=== PATIENT | female | born 1950 | race Caucasian/White ===

== ENCOUNTER 2018-03-26 09:01 | Outpatient (CLI) | payer MEDICARE ==
[2018-03-26] MEDS ORDERED: Iopamidol 370 76% 100 ML VIAL ONE (10:12)
--- NOTE | 2018-03-26 14:49 | CT ---
CT ANGIOGRAM OF NECK: Date: 03/26/18 HISTORY: Evaluate for carotid stenosis. Abnormal carotid ultrasound, performed at the physician's office. COMPARISON: None. TECHNIQUE: CT angiogram of the neck is performed in the axial plane. Three-dimensional reformatted images are khan bmitted for interpretation. FINDINGS: The visualized brain parenchyma and orbits are unremarkable. Adequate aeration of the visualized sinuses and mastoid air cells. No obvious masses in the oral cavity. Midline fatty raphe of the tongue is preserved. Epiglottis has a normal caliber. Preepiglottic fat is preserved. There is no prevertebral soft tissue swelling. Symmetric attenuation of the sternocleidomastoid muscles. Symmetric attenuation of the parotid and khan bmandibular glands. Mild heterogeneity of the thyroid gland. Nonemergent thyroid ultrasound recommended. No evidence of lymphadenopathy by size criteria. Cervical spine vertebral body height is maintained. There is no cervical spine fracture. Straightenin g of normal cervical lordosis is noted. Osteophytes are noted at the C4-5, C5-6, and C6-7 levels. Upper mediastinum is unremarkable. Ground-glass opacities in visualized lung apices. There are varying degrees of central canal stenosis and foraminal narrowing on the basis of degenerat loyda change. Evaluation is limited by technique. CT ANGIOGRAM: Aortic arch has appropriate enhancement and luminal diameter. Right Carotid: The origin of the right carotid artery has appropriate enhancement and luminal diamet er. There is calcified plaque without significant stenosis, based upon NASCET criteria, in the right carotid bifurcation and proximal internal carotid artery. The mid to distal internal carotid artery i s patent. Left Carotid: The origin of the left carotid artery has appropriate enhancement and luminal diameter . The left common carotid artery has appropriate enhancement and luminal diameter. There is calcified plaque in the left carotid bifurcation and proximal left internal carotid artery. Small ulcerative p laque is noted, measuring less than 1.0 mm. No evidence of hemodynamically significant stenosis based upon NASCET criteria. Bilateral subclavian arteries are unremarkable. Both cervical vertebral arteries are patent throughou t their course in the neck. The left vertebral artery is dominant. IMPRESSION: No evidence of significant stenosis based upon NASCET criteria. However, there is a small ulcerative focus involving the proximal left internal carotid artery. Cardiovascular surgical consultation is re commended. POS: TIO
== END 2018-03-26 09:02 | disposition home or self-care (01) ==
LOC: BICCT 09:01
PROVIDERS: ATTEND Internal Medicine Cardiovascular Disease
DX: I65.21 Occlusion and stenosis of right carotid artery (principal); I77.89 Other specified disorders of arteries and arterioles
CPT/HCPCS: 70498; 82565